=== PATIENT | female | born 1990 | race Caucasian/White ===

== ENCOUNTER 2019-01-14 18:35 | Emergency (ER) | payer OTHER ==
[~2019-01-14] VITALS: Ht 152.4 cm; Wt 65.8 kg
[2019-01-15] MEDS ORDERED: ZOFRAN8 MG PO (01:39)
[2019-01-15] MEDS ORDERED: PEPCID40 MG PO (01:39)
== END 2019-01-15 01:43 | disposition home or self-care (01) ==
LOC: ER 18:35
DX: O21.8 Other vomiting complicating pregnancy (principal); O23.41 Unspecified infection of urinary tract in pregnancy, first trimester; Z34.01 Encounter for supervision of normal first pregnancy, first trimester